=== PATIENT | male | born 2000 | race Caucasian/White ===

== ENCOUNTER 2020-08-11 19:17 | Emergency (ER) | payer MEDICAID ==
[~2020-08-11] VITALS: Ht 172.7 cm; Wt 71.7 kg
[2020-08-11 19:22] VITALS: BP 148/78
== END 2020-08-11 21:39 | disposition left against medical advice (07) ==
LOC: ER 19:17
DX: Z20.2 Contact with and (suspected) exposure to infections with a predominantly sexual mode of transmission (principal); Z53.21 Procedure and treatment not carried out due to patient leaving prior to being seen by health care provider